=== PATIENT | female | born 1985 | race Caucasian/White ===

== ENCOUNTER 2016-11-16 20:37 | Inpatient (IN) | payer OTHER ==
[~2016-11-16] VITALS: Ht 172.7 cm; Wt 83.0 kg
[2016-11-16] MEDS ORDERED: PRENATAL TABLE1 EAC3 PO (21:27)
[2016-11-16 21:32] VITALS: BP 129/69
[2016-11-16 21:54] LABS: EOSINOPHIL (%) 1.3 % (0-5); EOSINOPHIL COUNT 0.2 K/uL (0-0.3); HEMATOCRIT 34.4 % (36.0-46.0); IMMATURE GRANULOCYTE (%) 0.4 % (0.0-0.7); IMMATURE GRANULOCYTE COUNT 0.1 K/uL; INSTRUMENT ABS NEUTROPHIL CT 8.2 K/uL; MCH 28.7 PG (29.0-34.0); MCV 84.5 FL (83-99); MEAN PLAT.VOLUME 11.6 uM^3 (9.5-12.4); MONOCYTE (%) 8.3 % (3-12); MONOCYTE COUNT 0.9 K/uL (0-0.8); NEUTROPHIL (%) 71.8 % (45-76); NEUTROPHIL COUNT 8.2 K/uL (1.8-6.4); PLATELET COUNT 193 K/uL (156-360); RBC DIS.WIDTH-CV 13.1 % (11.8-14.6); RBC DIS.WIDTH-SD 39.7 % (39-53); RED BLOOD COUNT 4.07 M/uL (3.80-5.20); WHITE BLOOD COUNT 11.4 K/uL (4.1-10.2)
[2016-11-16 22:55] VITALS: BP 134/76
[2016-11-17] VITALS (24 sets, daily range): BP systolic 106–145; BP diastolic 56–84
[2016-11-17] MEDS ORDERED: PERCOCET 5/31 TABLET PO (17:24)
[2016-11-17] MEDS ORDERED: MOTRIN800 MG PO (17:24)
[2016-11-17] MEDS ORDERED: COLACE100 MG PO (17:25)
[2016-11-17] MEDS ORDERED: MILK OF MAGNESI10 ML PO (17:27)
[2016-11-18 07:11] LABS: EOSINOPHIL (%) 0.5 % (0-5); EOSINOPHIL COUNT 0.1 K/uL (0-0.3); HEMATOCRIT 26.4 % (36.0-46.0); IMMATURE GRANULOCYTE (%) 0.5 % (0.0-0.7); IMMATURE GRANULOCYTE COUNT 0.1 K/uL; INSTRUMENT ABS NEUTROPHIL CT 11.7 K/uL; LYMPHOCYTE COUNT 2.3 K/uL (1.0-2.8); MCH 28.5 PG (29.0-34.0); MCHC 33.7 G/DL (30.0-36.0); MCV 84.6 FL (83-99); MEAN PLAT.VOLUME 11.7 uM^3 (9.5-12.4); MONOCYTE (%) 5.9 % (3-12); MONOCYTE COUNT 0.9 K/uL (0-0.8); NEUTROPHIL (%) 77.6 % (45-76); NEUTROPHIL COUNT 11.7 K/uL (1.8-6.4); PLATELET COUNT 155 K/uL (156-360); RBC DIS.WIDTH-CV 13.2 % (11.8-14.6); RBC DIS.WIDTH-SD 41.1 % (39-53); RED BLOOD COUNT 3.12 M/uL (3.80-5.20)
[2016-11-18 07:41] VITALS: BP 97/53
[2016-11-18 08:14] VITALS: BP 121/77
[2016-11-18 15:27] VITALS: BP 117/68
[2016-11-19 07:36] VITALS: BP 121/67
== END 2016-11-19 12:36 | disposition home or self-care (01) | DRG 774 ==
LOC: LDRP-OP 20:37 → 2WEST 20:38 → LDRP-OP 12-10 12:04
PROVIDERS: Nurse Practitioner; Obstetrics & Gynecology
PROC: 10D07Z6 Extraction of Products of Conception, Vacuum, Via Natural or Artificial Opening (ICD-10-PCS; principal; 2016-11-17)
PROC: 0DQP0ZZ Repair Rectum, Open Approach (ICD-10-PCS; principal; 2016-11-17)
PROC: 10907ZC Drainage of Amniotic Fluid, Therapeutic from Products of Conception, Via Natural or Artificial Opening (ICD-10-PCS; principal; 2016-11-17)
PROC: 3E0R3CZ (ICD-10-PCS; 2016-11-17)
PROC: 00HU33Z Insertion of Infusion Device into Spinal Canal, Percutaneous Approach (ICD-10-PCS; 2016-11-17)
DX: O70.3 Fourth degree perineal laceration during delivery (principal); O63.1 Prolonged second stage (of labor); O62.1 Secondary uterine inertia; O75.2 Pyrexia during labor, not elsewhere classified; O75.81 Maternal exhaustion complicating labor and delivery; O48.0 Post-term pregnancy; Z3A.41 41 weeks gestation of pregnancy; Z37.0 Single live birth
CPT/HCPCS: 85025; C1755; G0378; J0595; J3010; J7120; S0020

== ENCOUNTER → 2016-11-22 | Outpatient (CLI) | payer OTHER ==
[~2016-11-22] MED LIST: COLACE100 MG PO; MILK OF MAGNESI10 ML PO; MOTRIN800 MG PO; PERCOCET 5/31 TABLET PO; PRENATAL TABLE1 EAC3 PO
== END | disposition home or self-care (01) ==
LOC: LAC 11:52
DX: O92.13 Cracked nipple associated with lactation (principal); O92.29 Other disorders of breast associated with pregnancy and the puerperium; O92.79 Other disorders of lactation
CPT/HCPCS: G0463